=== PATIENT | female | born 1945 | race Caucasian/White ===

== ENCOUNTER 2017-10-12 08:37 | Emergency (ER) | payer MEDICARE, OTHER ==
[~2017-10-12] VITALS: Ht 162.6 cm; Wt 83.9 kg
--- NOTE | 2017-10-12 08:54 | ER.PDOC ---
General Chief Complaint: Requesting Medical Care Stated Complaint: FEMALE / DYSURIA Time seen by MD: 09:00 Source: patient Exam Limitations: no limitations History of Present Illness Timing/Duration: week Location of Pain: pelvic pain LMP (females 10-50): postmenopause Care: none Sexual Kinde History: single partner Contraceptive: none Associated Symptoms: dysuria, urinary frequency Prior symptoms/Treatment: Similar symptoms previous, Recenly Seen, Treated by Doctor Past Medical History Medical History: no pertinent history LMP (females 10-50): postmenopause Family History Significant Family History: no pertinent family hx Social History Smoking: non-smoker Alcohol Use: none Reviewed Nursing Reviewed: Vital Signs, Abn. Noted Review of Systems All Other Systems: Reviewed and Negative Physical Exam General Appearance: No Apparent Distress, WD/WN EENT: eyes nml inspection, nml ENT inspection, pharynx nml Neck: nml inspection, non-tender Cardiovascular/Respiratory: Regular Rate, Rhythm, No M/R/G, Normal Peripheral Pulses, No JVD, Normal Breath Sounds, No Respiratory Distress Abdomen: Other (SUPRAPUBIC ) Back: nml inspection Extremities: Normal Range of Motion, Non-Tender, Normal Inspection, No Pedal Edema, No Calf Tenderness, Normal Capillary Refill Neurologic/Psychiatric: breaker up II-XII NML as Tested, No Motor/Sensory Deficits, Alert, Normal Mood/Affect, Oriented x 3 Skin: Normal Color, Warm/Dry Lymphatic: No Adenopathy Results/Orders Results/Orders DECLINED PAIN MEDS, IM ANTIBIOTICS Course Vitals & review Data Vital Sign - Last 24 Hours 10/12/17 10/12/17 10/12/17 09:10 09:10 09:14 Temp 98.7 98.7 98.7 Pulse 75 69 69 Resp 18 B/P (MAP) 137/97 (110) Pulse Ox 95 95 O2 Delivery Room Air Room Air Sepsis Infection Criteria Pres: Suspected Infection Departure Time of Disposition: 09:11 Disposition: 01 HOME, SELF-CARE Impression: Primary Impression: Cystitis Condition: Stable Referrals: PCP,UNKNOWN (PCP) PRIMARY CARE PROVIDER Duration or Time Spent with Pa: 30 MIN CEFERINO CAGE MD Oct 12, 2017 08:54
[2017-10-12 09:11] LABS: BILIRUBIN,URINE NEGATIVE (NEGATIVE); UROBILINOGEN,URINE NORMAL (NEGATIVE)
[2017-10-12 09:14] VITALS: BP 137/97
[2017-10-12 09:25] LABS: APPEARANCE,URINE CLOUDY (CLEAR); UA COLOR YELLOW (YELLOW)
[2017-10-12] MEDS ORDERED: ROCEPHIN IM IM STA (09:31)
[2017-10-12] MEDS ORDERED: ROCEPHIN ONE (09:39)
[2017-10-12] MEDS ORDERED: LIDOCAINE 1% VIAL ONE (09:39)
[2017-10-12 09:41] VITALS: BP 146/96
[2017-10-12 09:43] VITALS: BP 146/96
== END 2017-10-12 09:50 | disposition home or self-care (01) ==
LOC: ER 08:37
DX: N30.90 Cystitis, unspecified without hematuria (principal)
CPT/HCPCS: 81000; 87086; 96372; 99284; J0696; J2001